=== PATIENT | female | born 1935 | race Two or more races ===

== ENCOUNTER 2019-06-20 07:27 | Outpatient (CLI) | payer OTHER | END 2019-06-20 07:31 | disposition home or self-care (01) | LOC: NUCLEAR 07:27 | DX: I20.8 Other forms of angina pectoris (principal); I11.9 Hypertensive heart disease without heart failure | CPT/HCPCS: 78452; 93017; A9500; J0153 ==

== ENCOUNTER 2023-07-07 19:01 | Emergency (ER) | payer OTHER ==
[~2023-07-07] VITALS: Ht 157.5 cm; Wt 63.0 kg
[2023-07-07] MEDS ORDERED: CARVEDILOL ER40 MG PO (19:18)
[2023-07-07] MEDS ORDERED: ADULT LOW DOSE81 M1 PO (19:18)
[2023-07-07] MEDS ORDERED: COZAAR50 MG PO (19:18)
[2023-07-07] MEDS ORDERED: SIMVASTATIN5 MG PO (19:19)
[2023-07-07] MEDS ORDERED: GLUMETZA500 MG PO (19:19)
[2023-07-07] MEDS ORDERED: SYNTHROID50 MCG PO (19:19)
[2023-07-07 20:29] LABS: HEMATOCRIT 34.7 % (36.0-45.00); HEMOGLOBIN 11.2 g/dL (12.0-15.00); MEAN CELL VOLUME 88.5 fL (80.00-100.00); MEAN CORPUSCULAR HEMOGLOBIN 28.6 pg (27.00-32.0); MEAN CORPUSCULAR HGB CONC 32.3 g/dl (32.0-36.0); PLATELET COUNT 220 K/uL (150-450); RED BLOOD COUNT 3.92 M/uL (4.00-6.00); RED CELL DISTRIBUTION WIDTH 13.9 % (11.5-14.5)
[2023-07-07 20:51] LABS: INR 1.09; PARTIAL THROMBOPLASTIN TIME 27.1 SECONDS (22.0-34.0); PROTHROMBIN TIME 11.4 SECONDS (9.0-11.5)
[2023-07-07 20:52] LABS: CREATININE SERUM 0.97 mg/dL (0.55-1.02); GFR 54.07; POTASSIUM 4.32 mEq/L (3.5-5.1)
[2023-07-07] MEDS ORDERED: LOSARTAN POTAS100 MG PO (21:59)
== END 2023-07-07 22:05 | disposition home or self-care (01) ==
LOC: ER 19:01
PROVIDERS: Nurse Practitioner Family
DX: I10 Essential (primary) hypertension (principal); R00.2 Palpitations; E11.9 Type 2 diabetes mellitus without complications; Z79.84 Long term (current) use of oral hypoglycemic drugs; N28.9 Disorder of kidney and ureter, unspecified; Z88.0 Allergy status to penicillin
CPT/HCPCS: 36415; 93005; 93041; 96365; 99284; J3490